=== PATIENT | female | born 1960 | race Caucasian/White ===

== ENCOUNTER 2022-10-02 09:15 | Emergency (ER) | payer OTHER ==
[2022-10-02 09:38] VITALS: BP 155/87; PULSE 102
== END 2022-10-02 10:55 | disposition home or self-care (01) ==
LOC: LB.ED 09:15
DX: M79.672 Pain in left foot (principal); Z88.5 Allergy status to narcotic agent; Z91.041 Radiographic dye allergy status; Z91.012 Allergy to eggs; Z91.048 Other nonmedicinal substance allergy status
CPT/HCPCS: 73630-LT; 99283